=== PATIENT | female | born 1965 | race Caucasian/White ===

== ENCOUNTER 2020-08-06 10:29 | Observation (INO) ==
[~2020-08-06 10:29] MED LIST: DEXAMETHASONE 10 MG/ML VIAL ONE; GLYCOPYRROLATE 0.2 MG/ML VIAL IV ONE; KETAMINE 100 MG/ML ML ONE; LIDOCAINE HCL/PF 100 MG/5 ML SYRINGE IV ONE; MIDAZOLAM 2 MG/2 ML VIAL ONE; ONDANSETRON 4 MG/2 ML VIAL ONE; PHENYLEPHRINE 10 MG/ML VIAL ONE; PROPOFOL 200 MG/20 ML VIAL IV ONE; ROCURONIUM 10 MG/ML ML IV ONE; SUGAMMADEX SODIUM 200 MG/2 ML VIAL IV ONE; fentaNYL 100 MCG/2 ML VIAL IV ONE
[2020-08-06] MEDS ORDERED: ONDANSETRON 4 MG/2 ML VIAL IV ONE (10:50)
[2020-08-06] MEDS ORDERED: KETOROLAC 30 MG/ML VIAL IV ONE (10:50)
[2020-08-06] MEDS ORDERED: 0.9 % SODIUM CHLORIDE 1,000 ML IV ONE (10:50)
--- NOTE | 2020-08-06 10:57 | Emergency Department Note ---
Abdominal Pain HPI General Chief Complaint: Abdominal Pain Stated Complaint: N/v abd pain Time Seen by Provider: 08/06/20 10:31 Source: patient Mode of arrival: ambulatory Limitations: no limitations History of Present Illness HPI Narrative: Narrative: 55-year-old female patient presents emergency department with chief complaint of recurrent right upper quadrant pain, nausea, and vomiting. Patient has known history of cholelithiasis and was seen in our emergency department back in 2018 for similar presentation. She mentions eating some night. Soon afterwards she developed the exquisite, sharp, stabbing right upper quadrant pain. This radiates up into the ipsilateral shoulder. She has been nauseated and vomited x1 today. ROS: Denies systemic illness, fever, sweats, chills. Denies runny nose, sinus congestion, or cough. Denies shortness of breath. Denies retrosternal chest pain or palpitations. Denies diarrhea. Denies dysuria, hematuria, urinary frequency, or urinary urgency. Denies generalized or focal weakness. Related Data Home Medications Medication Instructions Recorded Confirmed No Known Home Meds 08/06/20 08/06/20 Allergies Allergy/AdvReac Type Severity Reaction Status Date / Time Sulfa (Sulfonamide Allergy Unknown Hives Verified 08/06/20 10:29 Antibiotics) Review of Systems ROS ROS Narrative: Narrative: All systems ED: reviewed and negative except as stated. [facility] Narrative Patient History Narrative: Narrative: Medical/Surgical/Family History All Active Problems (Updated 08/06/20 @ 19:18 by Andrea Cortes PA-C) Cholelithiasis and cholecystitis without obstruction (Acute) Cholelithiasis (Acute) Tobacco abuse (Chronic) Psoriasis (Chronic) Joint pain (Chronic) Acid reflux (Chronic) Upper respiratory infection (Acute) Bacterial conjunctivitis of left eye (Acute) Medical History Acid reflux (Chronic) Bacterial conjunctivitis of left eye (Acute) Joint pain (Chronic) Psoriasis (Chronic) 1992 Tobacco abuse (Chronic) Upper respiratory infection (Acute) Surgical History H/O tubal ligation (Chronic) 1993 Hx of tonsillectomy (Chronic) 1974 Family History Grandmother Arthritis Mother Diabetes Hypertension, essential Father Hypertension, essential Social History Smoking Status: Current every day smoker Alcohol Intake Frequency: holiday/special occasion only Substance Use: does not use Exam Narrative Narrative: Narrative: General Limitations: no limitations General appearance: Present other (Well-developed, well-nourished, 55-year-old female patient sitting upright on the emergency room gurney in obvious discomfort. She is cradling the right side of her abdomen.She is afebrile but hypertensive blood pressure 142/104, other vital signs normal.) Head Head: Present normocephalic Eye Eye: Present normal appearance, PERRL and EOMI; Absent scleral icterus and conj unctival injection ENT ENT: Present normal oropharynx and mucous membranes moist Neck Neck: Present trachea midline; Absent lymphadenopathy and thyromegaly Chest Chest: Present symmetric chest wall rise Respiratory Respiratory: Present normal lung sounds bilaterally; Absent respiratory distress, wheezes, stridor, accessory muscle use and prolonged expiratory phase Cardiovascular Cardiovascular: Present regular rate and normal rhythm; Absent systolic murmur and diastolic murmur Adbominal Abdominal: Present soft, tenderness, guarding, normal bowel sounds and Viera's sign; Absent distention, rebound, rigidity, organomegaly and mass Expanded Abdominal Abdominal Tenderness: Present RUQ and moderate Extremities Extremities: Present normal inspection, full ROM and normal capillary refill Back Back: Present normal inspection and full ROM; Absent CVA tenderness (R) and CVA tenderness (L) Neurological Neurological: Present alert, oriented X3 and normal gait Psychiatric Psychiatric: Present normal affect and normal mood Skin Skin: Present warm (WNL), dry and normal color Course Course Course Narrative: The differential diagnosis for upper abdominal pain in the adult patient large and contains the following conditions. Predominately left sided: Splenomegaly, splenic infarct, splenic abscess, and splenic rupture. Predominately right sided: Biliary colic, acute cholecystitis, acute cholangitis, sphincter of Oddi dysfunction, acute hepatitis, perihepatitis (Ztzh-Xqic-Oqmhxf syndrome), liver abscess, portal vein thrombosis, and Budd- Chiari syndrome. Patient has known cholelithiasis was seen in the emergency department several years ago for same presentation. Based on her history of ingesting a high fatty meal last night, and her sudden onset of symptoms soon afterwards, we should focus our attention on her gallbladder. Patient is going to get an ultrasound of her gallbladder looking for worsening cholelithiasis or possible cholecystitis. Will also order some screening laboratory studies. Patient was given normal saline 1000 mL a bolus. Were to treat her pain initially with Toradol 30 mg IVP. Were also going to give her Zofran 4 mg IVP for nausea. Reevaluation(s) Reevaluation #1: A review the patient's diagnostics show the following: CBC hemoglobin 15.8, all others normal limits. Lactic acid 1.4. CMP AST 47, alkaline phosphatase 133, all others normal limits. Lipase 31. UA showing clear yellow urine specific gravity 1.02, trace blood, trace ketones, positive proteinuria. No evidence of infection. Repeat abdominal ultrasound showing cholelithiasis without evidence of cholecystitis. After reviewing the data I reached out to our general surgeon (Dr. Duarte) discussed case at length with him. At this time Dr. Duarte requested the patient be admitted under observation here to our facility and he would likely perform a cholecystectomy tomorrow. I discussed the treatment plan with the patient who verbalized understanding. With this in mind, I placed a holding orders in for the patient to be admitted here to our facility. Afterward, all further treatment decisions, modalities, and ultimate patient disposition will be carried out by the general surgeon. Vital Signs Vital signs: Vital Signs Temperature 96.6 F L 08/06/20 10:30 Pulse Rate 96 H 08/06/20 10:30 Respiratory Rate 16 08/06/20 10:30 Blood Pressure 142/104 08/06/20 10:30 Pulse Oximetry (%) 99 08/06/20 10:30 Temperature 97.8 F 08/06/20 16:00 Pulse Rate 72 08/06/20 16:00 Respiratory Rate 18 08/06/20 16:00 Blood Pressure 115/78 08/06/20 16:00 Pulse Oximetry (%) 95 08/06/20 16:00 [facility] Narrative Medical decision making narrative: Narrative: Lab Data Lab results reviewed: Yes I reviewed the patient's lab results. Result diagrams: 08/06/20 11:00 08/06/20 11:00 Labs: Lab Results 08/06/20 08/06/20 08/06/20 Range/Units 11:00 11:00 11:00 WBC 8.0 (4.5-11.0) K/mcL RBC 5.18 (4.00-5.20) M/mcL Hgb 15.8 H (12.0-15.0) g/dL Hct 47.3 (36.0-48.0) % MCV 91.3 (80.0-100.0) fL MCH 30.5 (26.0-34.0) pg MCHC 33.4 (31.0-36.0) g/dL RDW 12.0 (11.5-14.5) % Plt Count 356 (140-440) K/mcL MPV 10.3 (7.4-10.4) fL Neut % (Auto) 61.2 (38.0-78.0) % Lymph % (Auto) 28.4 (15.0-49.0) % Chambers % (Auto) 6.7 (1.0-12.0) % Eos % (Auto) 2.8 (0.0-7.0) % Baso % (Auto) 0.9 (0.0-2.0) % Lymph # (Auto) 2.26 (1.50-4.80) K/mcL Chambers # (Auto) 0.53 (0.10-0.90) K/mcL Eos # (Auto) 0.22 (0.00-0.70) K/mcL Baso # (Auto) 0.07 (0.00-0.20) K/mcL Absolute Neutrophils 4.87 (1.80-8.00) K/mcL VBG Lactic Acid 1.4 (0.5-2.0) mmol/L Sodium 140 (133-145) mmol/L Potassium 4.0 (3.3-5.1) mmol/L Chloride 97 (96-108) mmol/L Carbon Dioxide 28 (22-30) mmol/L Anion Gap 15.0 (8.0-16.0) BUN 13 (6-20) mg/dL Creatinine 0.9 (0.6-1.1) mg/dL GFR Calculation 73 Glucose 96 (70-105) mg/dL Calcium 10.0 (8.6-10.4) mg/dL Total Bilirubin 0.5 (0.1-1.0) mg/dL AST 47 H (<32) U/L ALT 36 (<40) U/L Alkaline Phosphatase 133 H (39-117) U/L Total Protein 7.6 (5.9-8.4) gm/dL Albumin 4.7 (3.2-5.2) gm/dL Globulin 2.9 (2.2-3.7) gm/dL Albumin/Globulin Ratio 1.6 (1.0-2.3) Lipase 31 (7-60) U/L Radiology Data Radiology results reviewed: Yes I reviewed the patient's radiology results. Radiology results narrative: Ordering Physician: Andrea Cortes PA-C Date of Service: 08/06/20 Procedure(s): US abdomen limited Accession Number(s): [id number] CLINICAL INFORMATION: Recurrent RUQ pain X 1 day. Hx of gallstones COMPARISON: None. FINDINGS: There are 3-4 stones the gallbladder ranging up to 3.2 cm. The gallbladder wall is normal thickness - 1 mm. there is no focal tenderness to suggest cholecystitis. Common bile duct is normal - 6 mm. The liver and pancreas are normal in size and echotexture. No free fluid. IMPRESSION: Cholelithiasis. Interpreted and Authenticated by: Ruben Dupree 08/06/20 Discharge Plan Patient/Caregiver Discharge Instructions Pt seen by MANAGER ADVERTISING/PA only: Yes Clinical Impression: Cholelithiasis Qualifiers: Cholelithiasis location: gallbladder Cholecystitis presence: without cholecystitis Biliary obstruction: without biliary obstruction Qualified Code(s): K80.20 - Calculus of gallbladder without cholecystitis without obstruction Patient Disposition: Xfer As Outpt/Obs ([facility]) Condition: Good Discharge Date/Time: 08/06/20 14:23
[2020-08-06 12:00] LABS: Basophils # (Auto) 0.07 K/mcL (0.00-0.20); Basophils % (Auto) 0.9 % (0.0-2.0); Eosinophils # (Auto) 0.22 K/mcL (0.00-0.70); Eosinophils % (Auto) 2.8 % (0.0-7.0); Hematocrit 47.3 % (36.0-48.0); Hemoglobin 15.8 g/dL (12.0-15.0); Lymphocytes # (Auto) 2.26 K/mcL (1.50-4.80); Lymphocytes % (Auto) 28.4 % (15.0-49.0); Mean Cell Volume 91.3 fL (80.0-100.0); Mean Corpuscular HGB Conc 33.4 g/dL (31.0-36.0); Mean Platelet Volume 10.3 fL (7.4-10.4); Monocytes # (Auto) 0.53 K/mcL (0.10-0.90); Monocytes % (Auto) 6.7 % (1.0-12.0); Neutrophils % (Auto) 61.2 % (38.0-78.0); Platelet Count 356 K/mcL (140-440); RBC 5.18 M/mcL (4.00-5.20)
[2020-08-06 12:21] LABS: ALT/SGPT 36 U/L (<40); AST/SGOT 47 U/L (<32); Albumin 4.7 gm/dL (3.2-5.2); Albumin/Globulin Ratio 1.6 (1.0-2.3); Alkaline Phosphatase 133 U/L (39-117); Bilirubin,Total 0.5 mg/dL (0.1-1.0); Blood Urea Nitrogen 13 mg/dL (6-20); Carbon Dioxide 28 mmol/L (22-30); Chloride 97 mmol/L (96-108); Globulin 2.9 gm/dL (2.2-3.7); Glomerular Filtration Rate 73; Glucose 96 mg/dL (70-105)
--- NOTE | 2020-08-06 12:39 | Ultrasound Report ---
CLINICAL INFORMATION: Recurrent RUQ pain X 1 day. Hx of gallstones COMPARISON: None. FINDINGS: There are 3-4 stones the gallbladder ranging up to 3.2 cm. The gallbladder wall is normal thickness - 1 mm. there is no focal tenderness to suggest cholecystitis. Common bile duct is normal - 6 mm. The liver and pancreas are normal in size and echotexture. No free fluid. IMPRESSION: Cholelithiasis. Interpreted and Authenticated by: Ruben Dupree 08/06/20
[2020-08-06] MEDS ORDERED: morphine 4 MG/ML VIAL IV PRN ×2 (12:59→14:50)
[2020-08-06] MEDS ORDERED: ONDANSETRON 4 MG/2 ML VIAL IV PRN ×2 (12:59→14:50)
[2020-08-06] MEDS ORDERED: 0.9 % SODIUM CHLORIDE 1,000 ML IV SCH (13:00)
[2020-08-06] MEDS ORDERED: 0.9 % SODIUM CHLORIDE 10 ML SYRINGE IV SCH (14:00)
[2020-08-06] MEDS ORDERED: PIPERACILLIN SODIUM/TAZOBACTAM 3.375 GM in DEXTROSE 5% IN WATER 50 ML IV SCH (14:00)
[2020-08-06] MEDS ORDERED: SCOPOLAMINE 1 PATCH PATCH TOPICAL PRN (14:53)
[2020-08-06] MEDS: 0.9 % SODIUM CHLORIDE 1,000 ML IV SCH ×2 (15:10→23:09)
--- NOTE | 2020-08-06 15:55 | XRay Report ---
CLINICAL INFORMATION: Preop COMPARISON: None. TECHNIQUE: PA and Lateral views FINDINGS: The heart size, mediastinum and pulmonary vessels are unremarkable. The lungs are clear. There are no effusions. The bones and soft tissues are within normal limits. IMPRESSION: Normal chest. Interpreted and Authenticated by: Ruben Dupree 08/06/20
[2020-08-06] MEDS: PIPERACILLIN SODIUM/TAZOBACTAM 3.375 GM in DEXTROSE 5% IN WATER 50 ML IV SCH ×2 (16:03→19:08)
--- NOTE | 2020-08-06 16:53 | General Surg History&Physical ---
HPI History of Present Illness Patient information: Note initiated : 08/06/20 at 4:52 pm Service Date, if different from initiated Date: [] Patient: Chanel Bragg a 55 y/o F admitted on 08/06/20 for N/V, Abd Pain. Chief Complaint: [] Chief complaint: recurrent abdominal pain with nausea and vomiting History of present illness: Ms. Bragg is a 55 year old F admitted with gallstone disease. She has had known gallstone disease since September 2017. She presented at that time with severe abdominal pain, nausea, vomiting and back pain. She was found to have multiple gallstones and edematous gallbladder. She was advised to report to the office for evaluation but never showed up. In the interim. She has had at least 6 or 7 attacks. Each attack consists of severe pain which radiates through to her back with severe nausea and vomiting that lasts a few hours and resolved. She had 2 severe attacks last night and this morning. She finally was seen in the emergency room and is noted to have 4 large stones in the gallbladder. She required narcotic analgesics and antiemetics for control of symptoms. She is admitted and will have cholecystectomy in the morning. Review of Systems All systems: reviewed and no additional remarkable complaints except as stated PFSH PFSH All Active Problems (Updated 08/06/20 @ 16:57 by Renaldo Duarte MD) Cholelithiasis and cholecystitis without obstruction (Acute) Cholelithiasis (Acute) Tobacco abuse (Chronic) Psoriasis (Chronic) Joint pain (Chronic) Acid reflux (Chronic) Upper respiratory infection (Acute) Bacterial conjunctivitis of left eye (Acute) Medical History Acid reflux (Chronic) Bacterial conjunctivitis of left eye (Acute) Joint pain (Chronic) Psoriasis (Chronic) 1992 Tobacco abuse (Chronic) Upper respiratory infection (Acute) Surgical History H/O tubal ligation (Chronic) 1993 Hx of tonsillectomy (Chronic) 1974 Family History Grandmother Arthritis Mother Diabetes Hypertension, essential Father Hypertension, essential Social History marital status: smoking status: Current every day smoker tobacco type: cigarettes alcohol intake frequency: holiday/special occasion only substance use type: does not use MEDS/ALLERGIES Home Medications and Allergies Home Medications Medication Instructions Recorded Confirmed Type No Known Home Meds 08/06/20 08/06/20 History Allergies Allergy/AdvReac Type Severity Reaction Status Date / Time Sulfa (Sulfonamide Allergy Unknown Hives Verified 08/06/20 10:29 Antibiotics) Physical Examination Vital Signs Vital signs: Temp Pulse Resp BP Pulse Ox 97.8 F 72 18 115/78 95 08/06/20 16:00 08/06/20 16:00 08/06/20 16:00 08/06/20 16:00 08/06/20 16:00 General physical appearance General physical exam: well developed, well nourished, no distress and moderate pain Eyes Eye exam: PERRL and normal ocular movement; negative icteric ENT ENT exam: normal pinna, normal nares and normal mucosa Head Head exam IM: Present atraumatic, normal inspection and normocephalic Neck Neck exam: no masses, no bruits, trachea midline, no lymphadenopathy and no venous distension Cardiovascular Cardiovascular exam IM: Present normal rate and rhythm, RRR, +S1 and +S2; Absent gallop and JVD Respiratory Respiratory exam: normal expansion, normal respiratory effort and clear to auscultation Abdomen Abdomen: Present soft and tender (mild right subcostal tenderness) Integumentary Integumentary: Present no rash (scattered psoriasis of her trunk), no growths and no abnormal pigmentation Neurologic Neurologic: Present normal coordination and normal sensation Musculoskeletal Musculoskeletal: Present normal gait and normal posture Psychiatric Psychiatric: Present oriented to time, oriented to person, oriented to place, speech is normal and memory intact Results Labs Result diagrams: 08/06/20 11:00 08/06/20 11:00 Labs: Abnormal lab results 08/06/20 08/06/20 Range/Units 11:00 11:00 Hgb 15.8 H (12.0-15.0) g/dL AST 47 H (<32) U/L Alkaline Phosphatase 133 H (39-117) U/L Diabetes panel 08/06/20 Range/Units 11:00 Sodium 140 (133-145) mmol/L Potassium 4.0 (3.3-5.1) mmol/L Chloride 97 (96-108) mmol/L Carbon Dioxide 28 (22-30) mmol/L BUN 13 (6-20) mg/dL Creatinine 0.9 (0.6-1.1) mg/dL Glucose 96 (70-105) mg/dL Calcium 10.0 (8.6-10.4) mg/dL AST 47 H (<32) U/L ALT 36 (<40) U/L Alkaline Phosphatase 133 H (39-117) U/L Total Protein 7.6 (5.9-8.4) gm/dL Albumin 4.7 (3.2-5.2) gm/dL Calcium panel 08/06/20 Range/Units 11:00 Calcium 10.0 (8.6-10.4) mg/dL Albumin 4.7 (3.2-5.2) gm/dL Pituitary panel 08/06/20 Range/Units 11:00 Sodium 140 (133-145) mmol/L Potassium 4.0 (3.3-5.1) mmol/L Chloride 97 (96-108) mmol/L Carbon Dioxide 28 (22-30) mmol/L BUN 13 (6-20) mg/dL Creatinine 0.9 (0.6-1.1) mg/dL Glucose 96 (70-105) mg/dL Calcium 10.0 (8.6-10.4) mg/dL Adrenal panel 08/06/20 Range/Units 11:00 Sodium 140 (133-145) mmol/L Potassium 4.0 (3.3-5.1) mmol/L Chloride 97 (96-108) mmol/L Carbon Dioxide 28 (22-30) mmol/L BUN 13 (6-20) mg/dL Creatinine 0.9 (0.6-1.1) mg/dL Glucose 96 (70-105) mg/dL Calcium 10.0 (8.6-10.4) mg/dL Total Bilirubin 0.5 (0.1-1.0) mg/dL AST 47 H (<32) U/L ALT 36 (<40) U/L Alkaline Phosphatase 133 H (39-117) U/L Total Protein 7.6 (5.9-8.4) gm/dL Albumin 4.7 (3.2-5.2) gm/dL All other labs normal. A/P Assessment and plan (1) Cholelithiasis and cholecystitis without obstruction: Status: Acute Qualifiers: Cholelithiasis location: gallbladder Cholecystitis acuity: acute and chronic Qualified Code(s): K80.12 - Calculus of gallbladder with acute and chronic cholecystitis without obstruction Narrative A/P Narrative: patient was counseled for laparoscopic cholecystectomy. It will be performed tomorrow morning. She has been started on antibiotics and given anti-emetics and and analgesics. Time Spent With Patient Time: Total time spent is greater than 50% in coordination of care (as documented) at patient's floor/unit and/or counseling patient:
[2020-08-06 18:32] LABS: Appearance,Urine CLEAR (Clear); Bilirubin,Urine Negative (Negative); Color,Urine YELLOW; Culture Indicated,Urine No; Glucose,Urine (UA) Negative (Negative); Ketones,Urine 5 mg/dL (Negative); Leukocyte Esterase,Urine Negative /ug (Negative); Nitrate,Urine Negative (Negative); Protein,Urine Negative (Negative); Specific Gravity,Urine 1.011 (1.000-1.035); Urine Blood Negative (Negative); Urobilinogen,Urine Negative
[2020-08-06] MEDS: 0.9 % SODIUM CHLORIDE 10 ML SYRINGE IV SCH (21:57)
[2020-08-07] MEDS: 0.9 % SODIUM CHLORIDE 10 ML SYRINGE IV SCH ×3 (05:34→22:18)
[2020-08-07] MEDS: PIPERACILLIN SODIUM/TAZOBACTAM 3.375 GM in DEXTROSE 5% IN WATER 50 ML IV SCH ×4 (05:34→17:55)
[2020-08-07 06:36] LABS: Hematocrit 39.3 % (36.0-48.0); Hemoglobin 12.7 g/dL (12.0-15.0); Mean Cell Volume 93.3 fL (80.0-100.0); Mean Corpuscular HGB Conc 32.3 g/dL (31.0-36.0); Mean Platelet Volume 10.3 fL (7.4-10.4); Platelet Count 274 K/mcL (140-440); RBC 4.21 M/mcL (4.00-5.20); Red Cell Distribution Width 12.1 % (11.5-14.5); WBC 8.2 K/mcL (4.5-11.0)
[2020-08-07] MEDS: 0.9 % SODIUM CHLORIDE 1,000 ML IV SCH ×4 (06:38→20:40)
[2020-08-07 07:15] LABS: ALT/SGPT 52 U/L (<40); AST/SGOT 46 U/L (<32); Albumin 3.6 gm/dL (3.2-5.2); Albumin/Globulin Ratio 1.8 (1.0-2.3); Alkaline Phosphatase 100 U/L (39-117); Bilirubin,Direct < 0.2 mg/dL (<0.3); Bilirubin,Total 0.4 mg/dL (0.1-1.0); Blood Urea Nitrogen 10 mg/dL (6-20); Calcium 8.5 mg/dL (8.6-10.4); Carbon Dioxide 27 mmol/L (22-30); Chloride 105 mmol/L (96-108); Glomerular Filtration Rate 73; Glucose 82 mg/dL (70-105); Lactate Dehydrogenase 145 U/L (135-225); Phosphorous 3.5 mg/dL (2.5-4.5); Triglycerides 131 mg/dL (<150)
[2020-08-07] MEDS ORDERED: IPRATROPIUM/ALBUTEROL 3 ML AMPUL.NEB NEB PRN ×4 (08:00→10:43)
[2020-08-07] MEDS ORDERED: KETOROLAC 30 MG/ML VIAL IV PRN ×2 (09:49→10:43)
[2020-08-07] MEDS ORDERED: ONDANSETRON 4 MG/2 ML VIAL IV PRN ×3 (09:49→10:43)
[2020-08-07] MEDS ORDERED: BENZOCAINE/MENTHOL 1 LOZENGE PO PRN ×2 (09:49→10:43)
[2020-08-07] MEDS ORDERED: MEPERIDINE 25 MG/ML SYRINGE IV PRN ×2 (09:49→10:43)
[2020-08-07] MEDS ORDERED: ACETAMINOPHEN 1,000 MG/100 ML BAG IV ONE (09:49)
[2020-08-07] MEDS ORDERED: MEPERIDINE 50 MG/ML INJECTION IM PRN ×2 (09:49→10:43)
[2020-08-07] MEDS ORDERED: PROMETHAZINE 25 MG/ML VIAL IM PRN ×2 (09:49→10:43)
[2020-08-07] MEDS ORDERED: LACTATED RINGERS 1,000 ML IV SCH ×2 (10:00→10:43)
[2020-08-07] MEDS: fentaNYL 100 MCG/2 ML VIAL IV PRN ×2 (10:20→10:25)
--- NOTE | 2020-08-07 10:37 | Brief Operative Note ---
Brief Operative Note Date of procedure: 08/07/20 Pre-op diagnosis: cholelithiasis with cholecystitis Post-op diagnosis: other (cholelithiasis with cholecystitis) Procedure: LAPAROSCOPIC CHOLECYSTECTOMY Grafts/Implants: No Anesthesia: GETA Findings: ACUTE INFLAMMATIONOF GALLBLADDER Complications: none Surgeon: Renaldo Duarte Estimated blood loss (cc): 10 Specimens Removed/Pathology: other (GALLBLADDER) Condition: stable Disposition: PACU
[2020-08-07] MEDS ORDERED: oxyCODONE HCL 5 MG TABLET PO PRN ×2 (10:40→10:52)
[2020-08-07] MEDS ORDERED: fentaNYL 100 MCG/2 ML VIAL IV PRN (10:43)
[2020-08-07] MEDS ORDERED: morphine 4 MG/ML VIAL IV PRN ×2 (10:43→10:52)
[2020-08-07] MEDS ORDERED: SCOPOLAMINE 1 PATCH PATCH TOPICAL PRN (10:43)
[2020-08-07] MEDS ORDERED: 0.9 % SODIUM CHLORIDE 1,000 ML IV SCH (10:43)
[2020-08-07] MEDS ORDERED: PIPERACILLIN SODIUM/TAZOBACTAM 3.375 GM in DEXTROSE 5% IN WATER 50 ML IV SCH (12:00)
[2020-08-07] MEDS: ONDANSETRON 4 MG/2 ML VIAL IV PRN ×2 (12:19→17:19)
[2020-08-07] MEDS ORDERED: 0.9 % SODIUM CHLORIDE 10 ML SYRINGE IV SCH (14:00)
[2020-08-07] MEDS ORDERED: ACETAMINOPHEN 1,000 MG/100 ML BAG IV SCH (16:00)
[2020-08-07] MEDS: ACETAMINOPHEN 1,000 MG/100 ML BAG IV SCH ×2 (16:12→22:17)
[2020-08-07] MEDS ORDERED: CALCIUM CARBONATE 500 MG TAB.CHEW CHEWED PRN (17:43)
[2020-08-07] MEDS: OMEPRAZOLE 20 MG CAPSULE PO SCH (19:22)
[2020-08-08] MEDS: PIPERACILLIN SODIUM/TAZOBACTAM 3.375 GM in DEXTROSE 5% IN WATER 50 ML IV SCH ×3 (00:20→12:39)
[2020-08-08] MEDS: ACETAMINOPHEN 1,000 MG/100 ML BAG IV SCH ×2 (04:02→10:23)
[2020-08-08] MEDS: 0.9 % SODIUM CHLORIDE 1,000 ML IV SCH ×3 (05:39→11:05)
[2020-08-08] MEDS: 0.9 % SODIUM CHLORIDE 10 ML SYRINGE IV SCH (05:40)
[2020-08-08 06:46] LABS: Basophils # (Auto) 0.04 K/mcL (0.00-0.20); Basophils % (Auto) 0.3 % (0.0-2.0); Eosinophils # (Auto) 0.01 K/mcL (0.00-0.70); Eosinophils % (Auto) 0.1 % (0.0-7.0); Hematocrit 35.2 % (36.0-48.0); Hemoglobin 11.5 g/dL (12.0-15.0); Lymphocytes # (Auto) 2.34 K/mcL (1.50-4.80); Lymphocytes % (Auto) 16.5 % (15.0-49.0); Mean Cell Volume 93.6 fL (80.0-100.0); Mean Corpuscular HGB Conc 32.7 g/dL (31.0-36.0); Mean Platelet Volume 10.5 fL (7.4-10.4); Monocytes # (Auto) 1.04 K/mcL (0.10-0.90); Monocytes % (Auto) 7.4 % (1.0-12.0); Neutrophils % (Auto) 75.7 % (38.0-78.0); Platelet Count 272 K/mcL (140-440); RBC 3.76 M/mcL (4.00-5.20); Red Cell Distribution Width 12.3 % (11.5-14.5); WBC 14.1 K/mcL (4.5-11.0)
[2020-08-08 07:16] LABS: ALT/SGPT 123 U/L (<40); AST/SGOT 93 U/L (<32); Albumin 3.3 gm/dL (3.2-5.2); Albumin/Globulin Ratio 1.5 (1.0-2.3); Alkaline Phosphatase 96 U/L (39-117); Bilirubin,Direct < 0.2 mg/dL (<0.3); Bilirubin,Total 0.3 mg/dL (0.1-1.0); Blood Urea Nitrogen 9 mg/dL (6-20); Calcium 8.7 mg/dL (8.6-10.4); Carbon Dioxide 23 mmol/L (22-30); Chloride 105 mmol/L (96-108); Globulin 2.2 gm/dL (2.2-3.7); Glomerular Filtration Rate 73; Glucose 83 mg/dL (70-105); Lactate Dehydrogenase 200 U/L (135-225); Phosphorous 4.1 mg/dL (2.5-4.5); Triglycerides 87 mg/dL (<150); Uric Acid 2.8 mg/dL (2.5-8.0)
[2020-08-08] MEDS: OMEPRAZOLE 20 MG CAPSULE PO SCH (07:26)
--- NOTE | 2020-08-08 14:07 | Discharge Summary ---
Discharge Provider Provider Patient information: Note initiated : 08/08/20 at 2:01 pm Service Date, if different from initiated Date: [] Patient: Chanel Bragg 55 y/o F admitted on 08/06/20 for N/V, Abd Pain. Chief Complaint: [] Date of admission: 08/06/20 14:17 Discharge date: 08/08/20 Primary care physician: Ruben Oconnor DO Admitting clinician: Renaldo Duarte Attending physician on admission: Renaldo Duarte Consults: 08/06/20 Consult to Physician [CONS] Stat Comment: Consulting Provider: Renaldo Duarte Reason For Exam: Physician to Consult Attending physician on discharge: Renaldo Duarte Discharging clinician: Renaldo Duarte COURSE Hospital Course Hospital course: 55-year-old female admitted with a four-day course of recurrent abdominal pain with nausea and vomiting. Pain was in the epigastrium and right upper quadrant with radiation through to the back. She was seen in the emergency room on the day of admission with a tender abdomen and with documented gallbladder ultrasound. She was admitted and had cholecystectomy on yesterday. It showed acute inflammation of gallbladder stones. She has done well overnight except for a single episode of nausea with vomiting. She has tolerated diet since then without difficulty. Her LFTs are unremarkable. She is afebrile. Patient is stable for discharge home Discharge diagnosis: acute cholecystitis with cholelithiasis Reason for admission: acute cholecystitis Procedures: laparoscopic cholecystectomy Pertinent studies/significant findings: upper abdominal ultrasound Complications: none Time spent discussing smoking cessation with patient: 3 to 10 minutes Time Spent with Patient Time attestation: Total time spent providing and/or coordinating discharge services: Physical Examination Vital Signs Vital signs: Temp Pulse Resp BP Pulse Ox 97.9 F 74 18 119/76 93 08/08/20 11:42 08/08/20 11:42 08/08/20 11:42 08/08/20 11:42 08/08/20 11:42 General physical appearance General physical exam: well developed, well nourished, no distress and moderate pain Eyes Eye exam: PERRL and normal ocular movement; negative icteric ENT ENT exam: normal pinna, normal nares and normal mucosa Head Head exam IM: Present atraumatic, normal inspection and normocephalic Cardiovascular Cardiovascular exam IM: Present normal rate and rhythm, RRR, +S1 and +S2; Absent gallop and JVD Respiratory Respiratory exam: normal expansion, normal respiratory effort and clear to auscultation Abdomen Abdomen: Present soft and tender (mild right subcostal tenderness) Integumentary Integumentary: Present no rash (scattered psoriasis of her trunk), no growths and no abnormal pigmentation Neurologic Neurologic: Present normal coordination and normal sensation Musculoskeletal Musculoskeletal: Present normal gait and normal posture Psychiatric Psychiatric: Present oriented to time, oriented to person, oriented to place, speech is normal and memory intact Discharge Plan Patient/Caregiver Discharge Instructions Activity: increase activity as tolerated Diet: Low Fat Instructions: How to Stop Smoking (DC), Laparoscopic Cholecystectomy (DC) Prescriptions: New promethazine 25 mg Tablet 25 mg PO Q4H PRN (Reason: Nausea) Qty: 20 RF: 0 Follow Up Plan Follow up with: Ruben Oconnor DO [Primary Care Provider] - Renaldo Duarte MD [Physician] - (contact office tomorrow morning and ask for an appointment in 2 weeks) Prognosis: Good Rehab Potential: Good I certify that the patient requires SNF services: No Overall status at discharge: patient is back to baseline Discharge Orders: Discharge Order (Routine); Ordered 08/08/20 Ordered By: Renaldo Duarte Pending Pending Pending: Resuscitation Status Full Code Diet Regular Diet Start Sun Aug 08 742 Calcium Carbonate/Glycine (Tums) 1,000 mg CHEWED Q2-3HP PRN PRN Reason: Dyspepsia Last Admin: 08/07/20 20:40 Dose: 1,000 mg Documented by: JEY Sodium Chloride (Sodium Chloride 0.9%) 1,000 mls @ 125 mls/hr IV .Q8H [facility] Last Admin: 08/08/20 11:05 Dose: Not Given Documented by: Admin: 08/08/20 07:27 Dose: 125 mls/hr Documented by: Admin: 08/08/20 05:39 Dose: Not Given Documented by: Infusion: 08/08/20 04:40 Dose: 125 mls/hr Documented by: Admin: 08/07/20 20:40 Dose: 125 mls/hr Documented by: Infusion: 08/07/20 19:03 Dose: 125 mls/hr Documented by: Admin: 08/07/20 18:00 Dose: Not Given Documented by: Admin: 08/07/20 11:03 Dose: 125 mls/hr Documented by: LEE Acetaminophen (Ofirmev) 1,000 mg in 100 mls @ 200 mls/hr IV Q6H [facility] Stop: 08/08/20 15:59 Last Infusion: 08/08/20 11:06 Dose: 0 mls/hr Documented by: Admin: 08/08/20 10:23 Dose: 200 mls/hr Documented by: Infusion: 08/08/20 04:40 Dose: 0 mls/hr Documented by: Admin: 08/08/20 04:02 Dose: 200 mls/hr Documented by: Infusion: 08/07/20 23:05 Dose: 0 mls/hr Documented by: Admin: 08/07/20 22:17 Dose: 200 mls/hr Documented by: Infusion: 08/07/20 16:42 Dose: 0 mls/hr Documented by: Admin: 08/07/20 16:12 Dose: 200 mls/hr Documented by: LEE Piperacillin Sod/Tazobactam (Sod 3.375 gm/ Dextrose) 50 mls @ 100 mls/hr IV Q6H [facility]; Protocol Last Admin: 08/08/20 12:39 Dose: 100 mls/hr Documented by: Infusion: 08/08/20 06:05 Dose: 0 mls/hr Documented by: Admin: 08/08/20 05:39 Dose: 100 mls/hr Documented by: Infusion: 08/08/20 01:00 Dose: 0 mls/hr Documented by: Admin: 08/08/20 00:20 Dose: 100 mls/hr Documented by: Infusion: 08/07/20 18:47 Dose: 0 mls/hr Documented by: Admin: 08/07/20 17:55 Dose: 100 mls/hr Documented by: Infusion: 08/07/20 12:51 Dose: 0 mls/hr Documented by: Admin: 08/07/20 12:21 Dose: 100 mls/hr Documented by: KAPIL Omeprazole (Prilosec) 40 mg PO BIDAC [facility] Last Admin: 08/08/20 07:26 Dose: 40 mg Documented by: Admin: 08/07/20 19:22 Dose: 40 mg Documented by: JEY Ondansetron HCl (Zofran) 4 mg IV Q6HP PRN PRN Reason: Nausea And Vomiting Last Admin: 08/07/20 17:19 Dose: 4 mg Documented by: Admin: 08/07/20 12:19 Dose: 4 mg Documented by: KAPIL Sodium Chloride (Saline Flush) 10 ml IV Q8 [facility] Last Admin: 08/08/20 05:40 Dose: Not Given Documented by: Admin: 08/07/20 22:18 Dose: Not Given Documented by: Admin: 08/07/20 12:34 Dose: Not Given Documented by: BURTORGAN Shift Summary 08/08/20 05:13 Shift Summary by Cece FullerX4. 4 Lap sites with shadow dressing. Up with SBA. NS @ 125 to LFA. Schedule ofirmev and zosyn. Has not needed any PRN for pain. Did vomit last night but has not had any nausea this morning. Walked in the hallways. Will update at bedside. Initialized on 08/08/20 05:13 - END OF NOTE
[2020-08-08] MEDS ORDERED: OMEPRAZOLE 20 MG CAPSULE PO SCH (17:45)
--- NOTE | 2020-08-10 13:27 | Surgical Pathology Report ---
Histology Microscopic Diagnosis Specimen A- GALLBLADDER, CHOLECYSTECTOMY: --- CHRONIC CHOLECYSTITIS WITH CHOLELITHIASIS. --- ONE BENIGN LYMPH NODE. (RLF:sln) Procedural Impression Cholelithiasis; cholecystitis. Gross Description Received in formalin designated gallbladder, is a purple-haywood gallbladder that measures 8.5 x 3.3 x 2.5 cm. There is a metal clip on the duct. Near the duct there is a 0.7 x 0.4 x 0.3 cm firm booth nodule. The specimen contains viscous green-brown fluid and multiple stones from less than 0.1 to 1.2 cm. The mucosa is green-booth and rough surfaced with a few areas of lacy yellow pigmentation. The wall is up to 0.2 cm thick. Agile [employer] Coach sections submitted - one cassette. (SCB:sln) Electronically Signed Skylar Carr MD, FCAP Electronically Signed 08/10/2020 13:26
--- NOTE | 2020-08-16 16:16 | Operative Note ---
DATE OF OPERATION: 08/07/2020 PREOPERATIVE DIAGNOSES: Cholelithiasis with cholecystitis. POSTOPERATIVE DIAGNOSES: Cholelithiasis with cholecystitis. PROCEDURE: Laparoscopic cholecystectomy. SURGEON: Renaldo Duarte M.D. FINDINGS: Acute inflammation of the gallbladder. DESCRIPTION OF PROCEDURE: Under general anesthesia, the patient's abdomen was prepped and draped in a sterile field. Timeout procedure was carried out as per protocol. Supraumbilical incision was made and Veress needle was inserted uneventfully. Abdomen was insufflated with 3 liters of CO2. A 12 mm port was placed. Laparoscope was placed. Under videoscopic guidance, a 12 mm port and two 5 mm ports were placed in the right subcostal region. There was acute inflammation of the gallbladder. The gallbladder was grasped and positioned. The cystic duct was dissected and followed back to the gallbladder. Cystic artery branch was dissected and followed onto the wall of the gallbladder. Cystic duct was transected using the Endo JJ stapler close to the gallbladder infundibulum. Cystic artery was clipped with five clips and divided. The gallbladder was from the infrahepatic bed using electrocautery. Gallbladder was placed in the Endopouch and retrieved. There was minimal bleeding and there was no bile leak. Irrigation was carried out. CO2 was allowed to escape from the abdomen and the ports were removed. The fascia at the umbilicus was closed with 0 Vicryl. Skin incisions were closed with jaxon. Tegaderm dressings were placed. The patient tolerated the procedure well. She was awakened, transferred to a bed, and taken to the postanesthetic care unit in stable, satisfactory condition. [id number]:misa Job ID: [id number] Doc ID: [id number] Renaldo Duarte M.D.
== END 2020-08-08 15:20 | disposition home or self-care (01) ==
LOC: ED 10:29 → MEDSUR 10:29
PROVIDERS: ADMIT Family Medicine Adult Medicine; ATTEND Family Medicine Adult Medicine